=== PATIENT | male | born 1975 ===

== ENCOUNTER 2016-03-17 21:59 | Emergency (ER) | payer MEDICAID, OTHER ==
[2016-03-17] MEDS ORDERED: DIPHTH,PERTUSS(ACELL),TET VAC 0.5 ML VIAL IM V ONE (23:22)
== END 2016-03-17 23:30 | disposition home or self-care (01) ==
LOC: ED 21:59
DX: S01.81XA Laceration without foreign body of other part of head, initial encounter (principal); Z23 Encounter for immunization; W50.0XXA Accidental hit or strike by another person, initial encounter; Y93.67 Activity, basketball; Y92.310 Basketball court as the place of occurrence of the external cause